=== PATIENT | male | born 1955 | race African-American/Black ===

== ENCOUNTER 2019-07-14 22:34 | Inpatient (IN) ==
[2019-07-14] MEDS ORDERED: SODIUM CHLORIDE 0.9% 1,000 ML IV STA (23:06)
[2019-07-14] MEDS ORDERED: HYDROmorphone 2 MG/1 ML VIAL IV STA (23:06)
[2019-07-14] MEDS ORDERED: PANTOPRAZOLE 40 MG VIAL IV STA (23:06)
[2019-07-14] MEDS ORDERED: ONDANSETRON 4 MG/2 ML VIAL IV STA (23:06)
[2019-07-15 00:03] LABS: Basophils % 0.1 % (0.0-0.8); Hematocrit 26.4 VOL% (42.0-52.0); Hemoglobin 8.5 GM/DL (14.0-18.0); Immature Granulocytes % 0.4 %; Immature Granulocytes Absolute 0.04 #; Lymphocytes # 0.4 10*3/uL (1.4-4.0); Lymphocytes % 4.6 % (21.2-54.2); Mean Corpuscular HGB Conc 32.2 GM/DL (32-36); Mean Corpuscular Volume 84.1 FL (87-102); Mean Platelet Volume 8.6 FL (9.6-12.0); Monocytes % 3.9 % (1.7-12.7); Platelet Count 497 T/CUMM (130-400); Red Blood Count 3.14 MC/CUMM (3.8-5.5); White Blood Count 9.2 T/CUMM (4-12)
[2019-07-15 00:34] LABS: Alanine Aminotransferase 13 U/L (16-61); Albumin 3.4 G/DL (3.4-5.0); Alkaline Phosphatase 113 U/L (45-117); Amylase 49 U/L (25-115); Aspartate Amino Transferase 17 U/L (0-37); Bilirubin,Total < 0.39 MG/DL (0.2-1.0); Blood Urea Nitrogen 22 MG/DL (7-18); Calcium 10.3 MG/DL (8.5-10.1); Estimated Glom Filtration Rate 19 ML/MIN; Glucose 111 MG/DL (74-106); Total Protein 8.1 G/DL (6.4-8.3)
[2019-07-15 01:12] LABS: Band Neutrophils 1 % (0-10); Lymphocytes 9 % (20-55); Segmented Neutrophils 86 % (50-85); Total Cells Counted 100
[2019-07-15 01:13] LABS: Anisocytosis 1+; Hypochromasia 1+; Platelet Estimate Adequate; Target Cells Few
[2019-07-15 02:58] LABS: Apearance,Urine CLEAR (Clear); Bilirubin,Urine Negative (Negative); Blood, Urine Negative (Negative); Glucose,Urine (UA) Negative (Negative); Hyaline Casts,Urine 1 /LPF (0-3); Ketones,Urine Negative (Negative); Mucus,Urine Occasional /LPF (Occasional); Nitrite,Urine Negative (Negative); Protein,Urine 30 MG/DL; RBC,Urine 1 /HPF (0-4); Renal Epithelial Cells,Urine Occasional /HPF (<1); Squamous Epithelial Cell,Urine Occasional /HPF (0-10); Urine Color Yellow (Yellow); Urine Specific Gravity 1.024 (1.001-1.035); WBC,Urine 3 /HPF (0-6)
[2019-07-15] MEDS: LACTATED RINGERS 1,000 ML IV SCH ×3 (04:09→23:33)
[2019-07-15 06:13] LABS: Basophils % 0.1 % (0.0-0.8); Hematocrit 24.7 VOL% (42.0-52.0); Hemoglobin 7.8 GM/DL (14.0-18.0); Immature Granulocytes % 0.4 %; Immature Granulocytes Absolute 0.03 #; Lymphocytes # 0.5 10*3/uL (1.4-4.0); Lymphocytes % 5.6 % (21.2-54.2); Mean Corpuscular HGB Conc 31.6 GM/DL (32-36); Mean Corpuscular Volume 84.9 FL (87-102); Mean Platelet Volume 9.4 FL (9.6-12.0); Neutrophils % 89.9 % (38.7-73.9); Platelet Count 519 T/CUMM (130-400); Red Blood Count 2.91 MC/CUMM (3.8-5.5); Red Cell Distribution Width 14.1 % (9.3-17.3); White Blood Count 8.6 T/CUMM (4-12)
[2019-07-15 06:23] LABS: Albumin 3.3 G/DL (3.4-5.0); Bilirubin,Total 0.4 MG/DL (0.2-1.0); Calcium 9.5 MG/DL (8.5-10.1); Total Protein 7.6 G/DL (6.4-8.3)
[2019-07-15] MEDS: HYDROmorphone 2 MG/1 ML VIAL IV PRN ×2 (12:18→23:33)
[2019-07-15] MEDS: MAGNESIUM HYDROXIDE SUSP 30 ML UDCUP NG ONE ×2 (12:21→15:19)
[2019-07-15] MEDS: ONDANSETRON 4 MG/2 ML VIAL IV PRN ×2 (17:19→21:06)
[2019-07-16] MEDS: LACTATED RINGERS 1,000 ML IV SCH ×2 (07:05→14:55)
[2019-07-16] MEDS ORDERED: POLYETHYLENE GLYCOL POWDER 17 GM PACK PO SCH (09:00)
[2019-07-16 12:38] VITALS: BP 161/92
[2019-07-16] MEDS ORDERED: HEPARIN LOCK FLUSH 500 UNIT/5 ML SYRINGE IV ONE (16:01)
== END 2019-07-16 16:23 | disposition home or self-care (01) | DRG 389 ==
LOC: N.ED 22:34 → N.EDINP 07-15 02:53 → N.4E 07-15 03:29
PROVIDERS: ADMIT Internal Medicine Geriatric Medicine; ATTEND Internal Medicine Geriatric Medicine

== ENCOUNTER 2019-08-03 10:09 | Inpatient (IN) ==
[2019-08-03] MEDS ORDERED: SODIUM CHLORIDE 0.9% 500 ML IV STA (10:37)
[2019-08-03 11:04] LABS: Basophils % 0.1 % (0.0-0.8); Hematocrit 24.2 VOL% (42.0-52.0); Hemoglobin 7.5 GM/DL (14.0-18.0); Immature Granulocytes % 0.4 %; Immature Granulocytes Absolute 0.05 #; Lymphocytes # 0.4 10*3/uL (1.4-4.0); Lymphocytes % 3.4 % (21.2-54.2); Mean Platelet Volume 9.3 FL (9.6-12.0); Monocytes % 6.5 % (1.7-12.7); NRBC # 0.03 10*3/uL; Neutrophils % 89.6 % (38.7-73.9); Platelet Count 487 T/CUMM (130-400); Red Blood Count 2.95 MC/CUMM (3.8-5.5); Red Cell Distribution Width 15.2 % (9.3-17.3); White Blood Count 11.5 T/CUMM (4-12)
[2019-08-03 11:23] LABS: Hypochromasia 2+; Lymphocytes 4 % (20-55); Platelet Estimate Adequate; Segmented Neutrophils 91 % (50-85); Total Cells Counted 100
[2019-08-03 11:37] LABS: Alanine Aminotransferase 16 U/L (16-61); Alkaline Phosphatase 144 U/L (45-117); Aspartate Amino Transferase 15 U/L (0-37); Bilirubin,Total < 0.39 MG/DL (0.2-1.0); Blood Urea Nitrogen 41 MG/DL (7-18); Calcium 9.4 MG/DL (8.5-10.1); Estimated Glom Filtration Rate 59 ML/MIN; Glucose 112 MG/DL (74-106); Total Protein 7.3 G/DL (6.4-8.3)
[2019-08-03] MEDS ORDERED: PROMETHAZINE 25 MG/1 ML VIAL IM PRN (12:59)
[2019-08-03] MEDS ORDERED: ONDANSETRON 4 MG/2 ML VIAL IV PRN (12:59)
[2019-08-03] MEDS ORDERED: SODIUM CHLORIDE 0.9% 1,000 ML IV PRN (14:13)
[2019-08-03] MEDS ORDERED: MORPHINE 10 MG/5 ML UDCUP PO PRN (14:30)
[2019-08-03] MEDS: FAMOTIDINE 20 MG/2 ML VIAL IV SCH (17:54)
[2019-08-03] MEDS: SODIUM CHLORIDE 0.9% 1,000 ML IV SCH (17:59)
[2019-08-03] MEDS: ENOXAPARIN 30 MG/0.3 ML SYRINGE SUBCUT SCH (23:37)
[2019-08-04] MEDS: FAMOTIDINE 20 MG/2 ML VIAL IV SCH ×2 (02:51→14:13)
[2019-08-04 07:32] LABS: % Iron Saturation 5.2 % (18-50); Calcium 9.2 MG/DL (8.5-10.1); Ferritin 205.3 ng/ml (26-388); Osmolality,Calculated 291.1 MOS/KG (273-304)
[2019-08-04 08:00] LABS: Basophils % 0.2 % (0.0-0.8); Eosinophils % 0.1 % (0.00-10.9); Hematocrit 33.6 VOL% (42.0-52.0); Immature Granulocytes % 0.3 %; Immature Granulocytes Absolute 0.06 #; Lymphocytes # 0.4 10*3/uL (1.4-4.0); Mean Corpuscular HGB Conc 32.1 GM/DL (32-36); Mean Corpuscular Volume 81.4 FL (87-102); Mean Platelet Volume 9.9 FL (9.6-12.0); Monocytes % 1.9 % (1.7-12.7); Neutrophils % 95.5 % (38.7-73.9); Platelet Count 412 T/CUMM (130-400)
[2019-08-04 08:02] LABS: Red Blood Count 4.13 MC/CUMM (3.8-5.5); White Blood Count 17.3 T/CUMM (4-12)
[2019-08-04 08:03] LABS: Hemoglobin 10.8 GM/DL (14.0-18.0)
[2019-08-04 08:19] LABS: Anisocytosis 1+; Band Neutrophils 23 % (0-10); Lymphocytes 4 % (20-55); Platelet Estimate Normal; Segmented Neutrophils 70 % (50-85); Target Cells Few; Total Cells Counted 100
[2019-08-04] MEDS: MORPHINE 4 MG/1 ML VIAL IV PRN ×2 (09:36→16:33)
[2019-08-04] MEDS: SODIUM CHLORIDE 0.9% 1,000 ML IV SCH ×2 (17:25→23:57)
[2019-08-04] MEDS: ENOXAPARIN 30 MG/0.3 ML SYRINGE SUBCUT SCH (20:19)
[2019-08-05] MEDS: FAMOTIDINE 20 MG/2 ML VIAL IV SCH ×2 (00:56→14:08)
[2019-08-05] MEDS: MORPHINE 4 MG/1 ML VIAL IV PRN ×2 (01:57→05:32)
[2019-08-05 06:32] LABS: Apearance,Urine Slightly Hazy (Clear); Bilirubin,Urine Negative (Negative); Blood, Urine Negative (Negative); Glucose,Urine (UA) Negative (Negative); Granular Casts,Urine 6 /LPF (0-1); Ketones,Urine 20 mg/dL (Negative); Nitrite,Urine Negative (Negative); Protein,Urine 30 MG/DL; RBC,Urine 1 /HPF (0-4); Squamous Epithelial Cell,Urine Occasional /HPF (0-10); Urine Color Yellow (Yellow); Urine Urobilinogen < 2.0 EU/DL (0.2-1.0); WBC,Urine 4 /HPF (0-6)
[2019-08-05 16:04] VITALS: BP 173/103
[2019-08-05] MEDS ORDERED: HEPARIN LOCK FLUSH 500 UNIT/5 ML SYRINGE IV ONE (16:47)
[2019-08-05] MEDS ORDERED: METOCLOPRAMIDE 10 MG/2 ML VIAL IV SCH (18:39)
[2019-08-06] MEDS ORDERED: LEVOFLOXACIN 500 MG TABLET PO SCH (09:00)
== END 2019-08-05 17:40 | disposition hospice, home (50) | DRG 640 ==
LOC: EDUNIT# → EDBD → N.EDINP 10:09 → N.ED 10:09 → N.4E 13:24
PROVIDERS: ADMIT Internal Medicine; ATTEND Internal Medicine